=== PATIENT | male | born 1955 | race Caucasian/White ===

== ENCOUNTER 2020-11-26 08:21 | Day surgery (SDC) | payer OTHER ==
[2020-11-23 10:28] LABS: COVID AG,FIA SOURCE NASOPHARYNGEAL
[~2020-11-26] VITALS: Ht 175.3 cm; Wt 94.1 kg
[~2020-11-26 08:21] MED LIST: SODIUM CHLORIDE 0.9% 1,000 ML IV ONE; SODIUM CHLORIDE 0.9% 1,000 ML ONE
[2020-11-26] MEDS ORDERED: BENZOCAINE 20% 50 MCG/SPRAY 57 GM TP ONE (08:22)
[2020-11-26] MEDS ORDERED: LIDOCAINE 2% 30 ML JELLY TP ONE (08:22)
[2020-11-26] MEDS ORDERED: ALBUTEROL SULFATE 2.5 MG/0.5 ML NEB SOLUTION NEB ONE (08:22)
[2020-11-26] MEDS ORDERED: BENZ-70 PO (09:16)
[2020-11-26] MEDS ORDERED: FOLI-130 PO (09:16)
[2020-11-26] MEDS ORDERED: ASPI-1450 PO (09:16)
[2020-11-26] MEDS ORDERED: FENO160T14 PO (09:16)
[2020-11-26] MEDS ORDERED: SUCR1TAB PO (09:16)
[2020-11-26] MEDS ORDERED: PRED10 PO (09:16)
[2020-11-26] MEDS ORDERED: METH2.5 PO (09:16)
[2020-11-26] MEDS ORDERED: OMEG-50 PO (09:16)
[2020-11-26] MEDS ORDERED: UPAD15TA (09:16)
[2020-11-26] MEDS ORDERED: FentaNYL CITRATE PF 100 MCG/2 ML VIAL ONE (09:29)
[2020-11-26] MEDS ORDERED: MIDAZOLAM HCL 5 MG/ML VIAL ONE (09:29)
[2020-11-26] MEDS ORDERED: MethylPREDNISolone SOD SUCC 125 MG/2 ML VIAL ONE (09:42)
[2020-11-26] MEDS ORDERED: MethylPREDNISolone SOD SUCC 125 MG/2 ML VIAL IVP ONE (10:30)
[2020-11-26] MEDS ORDERED: OXYGEN THERAPY IH SCH (20:00)
== END 2020-11-26 12:35 | disposition home or self-care (01) ==
LOC: SURGERY 08:21
PROVIDERS: ATTEND Internal Medicine Critical Care Medicine
DX: J38.4 Edema of larynx (principal); B37.0 Candidal stomatitis; J45.909 Unspecified asthma, uncomplicated; E78.00 Pure hypercholesterolemia, unspecified; D64.9 Anemia, unspecified; Z79.899 Other long term (current) drug therapy; Z98.890 Other specified postprocedural states
CPT/HCPCS: 31623; 31624; 71045; 87015; 87070; 87101; 87205; 87206; 87220; 87426; 88108; 88184; 88185; 88312; C9803; J2250; J2930; J3010; J7030; J7613